=== PATIENT | female | born 1990 | race Caucasian/White ===

== ENCOUNTER 2017-02-03 18:58 | Emergency (ER) | payer SELFPAY ==
[2017-02-03 19:05] VITALS: BP 136/91; PULSE 98; TEMP 98; BMI 16.5
--- NOTE | 2017-02-03 20:32 | PDOC ---
History of Present Illness - General Chief Complaint: Sore Throat Stated Complaint: SORE THROAT/CONGESTED Time Seen by Provider: 02/03/17 19:53 - History of Present Illness Initial Comments: 02/03/17 20:02 Pt. is a 27 y/o female presenting to the ED with a chief complaint of sore throat. Pt states her symptoms began 2 days ago and that she has progressively lost her voice. Admits to painful swallowing. Pt. is concerned she may have strep throat. Pt. did not try anything to help her symptoms. Denies fevers, chills, congestion, ear pain, cough, runny nose, headache, and nausea/vomiting/ diarrhea. Past History - Travel Traveled outside of the country in the last 30 days: No Close contact w/someone who was outside of country & ill: No - Past Medical History Allergies/Adverse Reactions: Allergies Allergy/AdvReac Type Severity Reaction Status Date / Time No Known Allergies Allergy Verified 02/03/17 19:03 Home Medications: Ambulatory Orders Metoclopramide HCl [Reglan] 10 mg PO TID PRN #10 tablet 03/26/14 Spironolactone 100 mg PO BID 03/26/14 Zafirlukast 20 mg PO BID 03/26/14 - Psycho/Social/Smoking Cessation Hx Anxiety: No Suicidal Ideation: No Smoking History: Current every day smoker Have you smoked in the past 12 months: Yes Number of Cigarettes Smoked Daily: 5 Information on smoking cessation initiated: No 'Breaking Loose' booklet given: 03/26/14 Hx Alcohol Use: No Drug/Substance Use Hx: No Substance Use Type: None Review of Systems - Review of Systems Able to Perform ROS?: Yes Is the patient limited Czech proficient: No Constitutional: No: Chills, Fever, Weakness HEENTM: Yes: Throat Pain, Throat Swelling, Difficulty Swallowing. No: Eye Pain , Recent change in vision, Ear Discharge, Nose Pain, Nose Congestion, Mouth Pain Respiratory: No: Cough, SOB with Exertion Cardiac (ROS): No: Chest Pain ABD/GI: No: Diarrhea, Nausea, Vomiting Neurological: No: Headache, Weakness, Unsteady Gait *Physical Exam - Vital Signs Last Vital Signs Temp Pulse Resp BP Pulse Ox 98 F 98 H 18 136/91 100 02/03/17 19:03 02/03/17 19:03 02/03/17 19:03 02/03/17 19:03 02/03/17 19:03 - Physical Exam General Appearance: Yes: Nourished, Appropriately Dressed. No: Apparent Distress HEENT: positive: EOMI, YOLIS, TMs Normal, Pharyngeal Erythema, Tonsillar Erythema. negative: Normal Voice (Hoarse voice, barely able to speak), Tonsillar Exudate, Nasal Congestion, Rhinorrhea, Sinus Tenderness, Excessive drooling Neck: positive: Trachea midline, Supple. negative: Tender, Rigid, Lymphadenopathy (R), Lymphadenopathy (L) Respiratory/Chest: positive: Lungs Clear, Normal Breath Sounds. negative: Respiratory Distress, Accessory Muscle Use, Rhonchi, Stridor, Wheezing Cardiovascular: positive: Regular Rhythm, Regular Rate, S1, S2 (present) Integumentary: positive: Normal Color, Dry, Warm Neurologic: positive: technology support analyst II-XII NML intact, Fully Oriented, Alert, Normal Mood/ Affect, Normal Response, Motor Strength 5/5 Medical Decision Making - Medical Decision Making 02/03/17 20:18 Pt. has a pharyngitis. No evidence of seasonal allergies. Will r/o strep at this time. Will give toradol for pain and re-evaluate. 02/03/17 21:02 Strep testing is negative at this time. Most likely a viral pharyngitis at this time with associated laryngitis. Will send home at this time with instructions to rest her voice. Recommend supportive measures such as ibuprofen for pain and popsicles or honey for pain. Pt. understands all discharge instructions and all questions were answered at this time. *DC/Admit/Observation/Transfer Diagnosis at time of Disposition: Viral pharyngitis, Laryngitis - Discharge Dispostion Disposition: HOME Condition at time of disposition: Stable Admit: No - Patient Instructions Printed Discharge Instructions: DI for Viral Pharyngitis Additional Instructions: You have a sore throat caused by a virus. Your strep testing was negative today. You may take Tylenol or Motrin for the pain as needed. You may use warm water gargles and popsicles to help with your symptoms. Follow up with your primary care doctor in one week. Return to the ED if you have worsening of your symptoms, develop fevers or cannot swallow.
[2017-02-03] MEDS ORDERED: KETOROLAC TROMETHAMINE 60 MG/2 ML VIAL IM ONE (20:47)
[2017-02-03] MEDS ORDERED: KETOROLAC TROMETHAMINE 60 MG/2 ML VIAL ONE (20:54)
== END 2017-02-03 21:42 | disposition home or self-care (01) ==
LOC: JERFT 18:58
PROC: 3E0233Z Introduction of Anti-inflammatory into Muscle, Percutaneous Approach (ICD-10-PCS; principal; 2017-02-03)
DX: J02.9 Acute pharyngitis, unspecified (principal); J04.0 Acute laryngitis; B97.89 Other viral agents as the cause of diseases classified elsewhere; F17.210 Nicotine dependence, cigarettes, uncomplicated
CPT/HCPCS: 84703; 87070; 87430; 99281-25